=== PATIENT | male | born 1990 | race Caucasian/White ===

== ENCOUNTER 2017-05-01 14:22 | Emergency (ER) | payer BC, OTHER ==
[~2017-05-01] VITALS: Ht 205.7 cm; Wt 158.8 kg
[~2017-05-01 14:22] MED LIST: AMOX-358 PO; CEPH-507 PO; MELO-195 PO; SULF1TAB35 PO
[2017-05-01] MEDS ORDERED: NS IV 1000 ML 1,000 ML IV ONE (15:16)
[2017-05-01] MEDS ORDERED: ONDANSETRON 4 MG/2 ML (SDV) Z0FRAN IVP ONE (15:30)
--- NOTE | 2017-05-01 15:42 | ED GI ---
General Chief Complaint: Abdominal/GI Problems Stated Complaint: N/V/D,FEVER Nursing Triage Note: AMB TO ROOM REPORTS DIARRHEA X2 DAYS VOMITING YESTERDAY, REPORTS ATE PI[employer] WITH NO VOMITNG. C/O RIB PAIN WITH COUGHING Sepsis Screen: No Definite Risk Source of Information: Patient Exam Limitations: No Limitations History of Present Illness Date Seen by Provider: May 01, 2017 Time Seen by Provider: 15:42 Allergies and Home Medications Allergies Coded Allergies: No Known Drug Allergies (Unverified , 11/21/15) Home Medications Sulfamethoxazole/Trimethoprim 1 Each Tablet, 1 EACH PO TID Prescribed by: DONTRELL SHERIDAN on 02/02/16 1329 Past Fpgyydk-Mdhrnn-Rbqohw Hx Patient Social History Alcohol Use: Denies Use Recreational Drug Use: No Recent Foreign Travel: No Contact w/Someone Who Travel: No Recent Infectious Disease Expo: No Recent Hopitalizations: No Immunizations Up To Date Tetanus Booster (TDap): Less than 5yrs Seasonal Allergies Seasonal Allergies: No Surgeries History of Surgeries: Yes (chin, toe) Respiratory History of Respiratory Disorde: No Cardiovascular History of Cardiac Disorders: No Neurological History of Neurological Disord: No Reproductive System Hx Reproductive Disorders: No Gastrointestinal History of Gastrointestinal Di: No Musculoskeletal History of Musculoskeletal Dis: No Endocrine History of Endocrine Disorders: No Cancer History of Cancer: No Psychosocial History of Psychiatric Problem: No Integumentary History of Skin or Integumenta: No Blood Transfusions History of Blood Disorders: No Family Medical History Significant Family History: No Pertinent Family Hx Physical Exam Vital Signs VS - Last 72 Hours, by Label 05/01/17 15:11 Temp 98.7 Pulse 95 Resp 18 B/P (MAP) 149/99 (116) Pulse Ox 95 O2 Delivery Room Air Capillary Refill : Less Than 3 Seconds Progress/Results/Core Measures Results/Orders Lab Results Laboratory Tests Test 05/01/17 15:53 Range/Units Urine Color YELLOW Urine Clarity CLEAR Urine pH 6 5-9 Urine Specific [place] 1.015 L 1.016-1.022 Urine Protein 3+ H NEGATIVE Urine Glucose (UA) NEGATIVE NEGATIVE Urine Ketones NEGATIVE NEGATIVE Urine Nitrite NEGATIVE NEGATIVE Urine Bilirubin NEGATIVE NEGATIVE Urine Urobilinogen NORMAL NORMAL MG/DL Urine Leukocyte Esterase NEGATIVE NEGATIVE Urine RBC (Auto) 1+ H NEGATIVE Urine RBC RARE /HPF Urine WBC 0-2 /HPF Urine Crystals NONE /LPF Urine Bacteria NEGATIVE /HPF Urine Casts NONE /LPF Urine Mucus SMALL H /LPF Urine Culture Indicated NO My Orders Orders - KRISTIE YEN Ondansetron Injection (Zofran Injectio (05/01/17 15:30) Ns Iv 1000 Ml (Sodium Chloride 0.9%) (05/01/17 15:16) Ua Culture If Indicated (05/01/17 16:06) Vital Signs/I&O Vital Sign - Last 12Hours 05/01/17 15:11 Temp 98.7 Pulse 95 Resp 18 B/P (MAP) 149/99 (116) Pulse Ox 95 O2 Delivery Room Air Blood Pressure Mean: 116 Departure Impression Impression: Primary Impression: Viral respiratory infection Additional Impression: Nausea, vomiting, and diarrhea Disposition: 01 HOME, SELF-CARE Condition: Improved Departure-Patient Inst. Decision time for Depature: 16:36 Referrals: [facility] (PCP/Family) Primary Care Physician Patient Instructions: Acute Abdomen (Belly Pain), Adult (DC), Viral Gastroenteritis, Adult (DC), Viral Upper Respiratory Infection, Adult (DC) Add. Discharge Instructions: All discharge instructions reviewed with patient and/or family. Voiced understanding. Medications as instructed. Tylenol Extra Strength over-the- counter as directed for pain. Ibuprofen 800 mg by mouth every 8 hours as needed for pain. Price, low-fat diet until symptoms improve, then increase diet slowly. Qahk-ixt-fmsjcky decongestants/antihistamines/cough suppressants as directed for symptoms. Drink plenty of fluids. Follow-up with your primary care provider if no improvement in symptoms. Return to the emergency department for worsened symptoms or any other concerns. Scripts Ondansetron (Ondansetron Odt) 8 Mg Tab.rapdis 8 MG PO Q6H Y for NAUSEA/VOMITING-1ST LINE, #10 TAB 0 Refills Prov: KRISTIE YEN 05/01/17 Work/School Note: Work Release Form Date Seen in the Emergency Department: May 01, 2017 Return to Work: May 02, 2017 Restrictions: Return-No Vomiting(24hrs) KRISTIE YEN May 01, 2017 15:42
[2017-05-01 16:12] LABS: BILIRUBIN,URINE NEGATIVE (NEGATIVE); CLARITY,URINE CLEAR; COLOR,URINE YELLOW; GLUCOSE, URINE (UA) NEGATIVE (NEGATIVE); KETONES,URINE NEGATIVE (NEGATIVE); LEUKOCYTE ESTERASE ,URINE NEGATIVE (NEGATIVE); NITRITE,URINE NEGATIVE (NEGATIVE); PH,URINE 6 (5-9); PROTEIN,URINE 3+ (NEGATIVE); UROBILINOGEN,URINE NORMAL (NORMAL)
[2017-05-01 16:20] LABS: BACTERIA,URINE NEGATIVE /HPF; RBC,URINE RARE /HPF; WBC,URINE 0-2 /HPF
[2017-05-01] MEDS ORDERED: ONDA8TAB13 PO (16:37)
[2017-05-01 16:48] VITALS: BP 14/90
== END 2017-05-01 16:48 | disposition home or self-care (01) ==
LOC: EDUNIT# 14:22 → ER 14:24
DX: J06.9 Acute upper respiratory infection, unspecified (principal); R19.7 Diarrhea, unspecified; R11.2 Nausea with vomiting, unspecified; Z88.2 Allergy status to sulfonamides
CPT/HCPCS: 81000; 99282

== ENCOUNTER 2017-05-17 19:48 | Emergency (ER) | payer OTHER ==
[~2017-05-17] VITALS: Ht 208.3 cm; Wt 158.8 kg
[~2017-05-17 19:48] MED LIST changes: +ONDA8TAB13 PO
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
--- NOTE | 2017-05-17 20:02 | ED Upper Extremity ---
General Chief Complaint: Upper Extremity Stated Complaint: R HAND SWELLING, PAIN History of Present Illness Date Seen by Provider: May 17, 2017 Time Seen by Provider: 20:00 Initial Comments Patient is a 26-year-old male who presents to the emergency room with complaints of right hand pain and bruising after catching a softball barehanded just prior to arrival. Onset: just prior to arrival Pain/Injury Location: right hand Method of Injury: sports injury Patient reports that he is able to move the hand and all of his fingers appropriately and demonstrated this on examination. Allergies and Home Medications Allergies Coded Allergies: No Known Drug Allergies (Unverified , 11/21/15) Home Medications Ondansetron 8 Mg Tab.rapdis, 8 MG PO Q6H PRN for NAUSEA/VOMITING-1ST LINE Prescribed by: KRISTIE YEN on 05/01/17 1637 Sulfamethoxazole/Trimethoprim 1 Each Tablet, 1 EACH PO TID Prescribed by: DONTRELL SHERIDAN on 02/02/16 1329 Patient Home Medication List Home Medication List Reviewed: Yes Constitutional: no symptoms reported, see HPI EENTM: see HPI, no symptoms reported Respiratory: no symptoms reported, see HPI Cardiovascular: no symptoms reported, see HPI Gastrointestinal: no symptoms reported, see HPI Genitourinary: no symptoms reported, see HPI Musculoskeletal: see HPI, other (right hand pain) Skin: no symptoms reported, see HPI Psychiatric/Neurological: No Symptoms Reported, See HPI Past Acbczxj-Fpnmjs-Jgrqim Hx Patient Social History Recent Foreign Travel: No Contact w/Someone Who Travel: No Recent Hopitalizations: No Immunizations Up To Date Tetanus Booster (TDap): Less than 5yrs Seasonal Allergies Seasonal Allergies: No Surgeries History of Surgeries: Yes (chin, toe) Respiratory History of Respiratory Disorde: No Cardiovascular History of Cardiac Disorders: No Neurological History of Neurological Disord: No Reproductive System Hx Reproductive Disorders: No Gastrointestinal History of Gastrointestinal Di: No Musculoskeletal History of Musculoskeletal Dis: No Endocrine History of Endocrine Disorders: No Cancer History of Cancer: No Psychosocial History of Psychiatric Problem: No Integumentary History of Skin or Integumenta: No Blood Transfusions History of Blood Disorders: No Family Medical History Significant Family History: No Pertinent Family Hx Physical Exam Vital Signs Capillary Refill : General Appearance: WD/WN, no apparent distress Neck: non-tender, full range of motion Cardiovascular: normal peripheral pulses, regular rate, rhythm Respiratory: chest non-tender, lungs clear Gastrointestinal: normal bowel sounds, non tender Back: normal inspection Wrist: Yes normal inspection, Yes non-tender Hand: Right (hand), ecchymosis, soft tissue tenderness Neurologic/Tendon: normal sensation Neurologic/Psychiatric: alert, normal mood/affect, oriented x 3 Skin: normal color Lymphatic: no adenopathy Progress/Results/Core Measures Results/Orders My Orders Orders - FAUSTINA BEACH APRN Hand, Right, 3 Views (05/17/17 19:59) Departure Impression Impression: Primary Impression: Contusion of right hand Disposition: HOME, SELF-CARE Condition: Stable/Unchanged Departure-Patient Inst. Decision time for Depature: 20:06 Referrals: [facility] (PCP/Family) Primary Care Physician Patient Instructions: Contusion (DC) Add. Discharge Instructions: Follow-up with her doctor within 1 week if pain persist. You may use Tylenol and ibuprofen as needed for pain relief. Use ice at 20 minute intervals for additional pain relief and swelling. Return back to the emergency room as needed. All discharge instructions reviewed with patient and/or family. Voiced understanding. FAUSTINA BEACH APRN May 17, 2017 20:02
--- NOTE | 2017-05-17 20:40 | Diagnostic Imaging Report ---
INDICATION: Caught a softball barehanded with pain to the lateral aspect near the first metacarpal phalangeal joint. FINDINGS: Three views of the right hand demonstrate normal ossification. No fracture or subluxation is present. IMPRESSION: Negative right hand. Dictated by: Dictated on workstation # [id number]
[2017-05-17 20:54] VITALS: BP 0/0
== END 2017-05-17 20:54 | disposition home or self-care (01) ==
LOC: EDUNIT# 19:48 → ER 19:50
DX: S60.221A Contusion of right hand, initial encounter (principal); Z98.890 Other specified postprocedural states; W21.07XA Struck by softball, initial encounter
CPT/HCPCS: 73130

== ENCOUNTER 2017-05-26 18:51 | Emergency (ER) | payer OTHER ==
[~2017-05-26] VITALS: Ht 208.3 cm; Wt 158.8 kg
--- NOTE | 2017-05-26 19:41 | Diagnostic Imaging Report ---
INDICATION: Shortness of breath and cough. PA and lateral views of the chest were obtained. FINDINGS: The heart size, mediastinal configuration, and pulmonary vascularity are within normal limits. There is no pleural effusion, pneumothorax, or pneumonia. The osseous structures are unremarkable. IMPRESSION: No acute cardiopulmonary abnormality. Dictated by: Dictated on workstation # [id number]
--- NOTE | 2017-05-26 20:13 | ED Cough/URI ---
General Chief Complaint: Cough/Cold/Flu Symptoms Stated Complaint: SOB Nursing Triage Note: Patient reports being SOA x 4 days, worse this afternoon while fishing. patient reports being exposed recently to pneumonia Source: patient Exam Limitations: no limitations History of Present Illness Date Seen by Provider: May 26, 2017 Time Seen by Provider: 20:13 Allergies and Home Medications Allergies Coded Allergies: No Known Drug Allergies (Unverified , 11/21/15) Home Medications No Active Prescriptions or Reported Meds Past Ofhgcuh-Mwrnas-Wgziha Hx Patient Social History Alcohol Use: Denies Use Recreational Drug Use: No Smoking Status: Never a Smoker Recent Foreign Travel: No Contact w/Someone Who Travel: No Recent Infectious Disease Expo: No Recent Hopitalizations: No Physical Abuse: No Sexual Abuse: No Immunizations Up To Date Tetanus Booster (TDap): Less than 5yrs Seasonal Allergies Seasonal Allergies: No Surgeries History of Surgeries: No Respiratory History of Respiratory Disorde: No Cardiovascular History of Cardiac Disorders: No Neurological History of Neurological Disord: No Reproductive System Hx Reproductive Disorders: No Genitourinary History of Genitourinary Disor: No Gastrointestinal History of Gastrointestinal Di: No Musculoskeletal History of Musculoskeletal Dis: No Endocrine History of Endocrine Disorders: No HEENT History of HEENT Disorders: No Cancer History of Cancer: No Psychosocial History of Psychiatric Problem: No Suicide Risk Score: 0 Integumentary History of Skin or Integumenta: No Blood Transfusions History of Blood Disorders: No Family Medical History Significant Family History: No Pertinent Family Hx Physical Exam Vital Signs Vital Signs - First Documented 05/26/17 05/26/17 19:06 20:50 Temp 97.7 Pulse 114 Resp 18 B/P (MAP) 114/91 (99) Pulse Ox 99 O2 Delivery Room Air Capillary Refill : Less Than 3 Seconds Progress/Results/Core Measures Suspected Sepsis Recent Fever Within 48 Hours: No Infection Criteria Present: None New/Unexplained Altered Menta: No Sepsis Screen: No Definite Risk Sepsis Diagnosis: SIRS Temperature:97.7 Pulse: 114 Respiratory Rate: 18 Blood Pressure 114 /91 Mean: 99 Results/Orders My Orders Orders - KRISTIE YEN PA Chest Pa/Lat (2 View) (05/26/17 19:28) Albuterol/Ipra Inhalation Soln (Duoneb I (05/26/17 20:30) Svn Sm Volume Nebulizer Rt-Rfs (05/26/17 20:21) Prednisone Tablet (Deltasone Tablet) (05/26/17 20:30) Medications Given in ED Current Medications Medications Dose Ordered Sig/Narciso Route Start Time Stop Time Status Last Admin Dose Admin Albuterol/ Ipratropium 3 ml ONCE ONCE INH 05/26/17 20:30 05/26/17 20:31 DC 05/26/17 20:49 3 ML Prednisone 40 mg ONCE ONCE PO 05/26/17 20:30 05/26/17 20:31 DC 05/26/17 20:35 40 MG Vital Signs/I&O Vital Sign - Last 12Hours 05/26/17 05/26/17 19:06 20:50 Temp 97.7 Pulse 114 Resp 18 B/P (MAP) 114/91 (99) Pulse Ox 99 96 O2 Delivery Room Air Capillary Refill : Less Than 3 Seconds Blood Pressure Mean: 99 Departure Impression Impression: Primary Impression: Bronchitis Disposition: 01 HOME, SELF-CARE Condition: Improved Departure-Patient Inst. Decision time for Depature: 21:33 Referrals: E[facility] FRANCOIS (PCP/Family) Primary Care Physician Patient Instructions: Acute Bronchitis, Adult (DC) Add. Discharge Instructions: All discharge instructions reviewed with patient and/or family. Voiced understanding. Medications as instructed. Tylenol Extra Strength over-the- counter as directed for pain or fever. Ibuprofen 800 mg by mouth every 8 hours as needed for pain or fever. Push fluids. Cool humidifier. Deyz-qrm-wpdzbdk decongestants and antihistamines, and cough suppressants as needed for symptoms. Follow-up with your family practitioner for recheck as outpatient if needed. Return to the emergency department for worsened symptoms or any other concerns. Scripts Prednisone (Prednisone) 20 Mg Tab 40 MG PO DAILY, #8 TAB 0 Refills Prov: KRISTIE YEN 05/26/17 Albuterol Sulfate (Albuterol Sulfate) 2.5 Mg/3 Ml Vial.neb 2.5 MG IH Q6H Y for WHEEZING, #25 EA 0 Refills Prov: KRISTIE YEN 05/26/17 Minocycline HCl (Minocycline HCl) 100 Mg Capsule 100 MG PO BID, #14 CAP 0 Refills Prov: KRISTIE YEN 05/26/17 KRISTIE YEN May 26, 2017 20:13
[2017-05-26] MEDS ORDERED: predniSONE 20 MG TAB PO ONE (20:30)
[2017-05-26] MEDS ORDERED: RT-ALBUTEROL/IPRATROPIUM 3 ML (DUONEB) VIAL INH ONE (20:30)
[2017-05-26] MEDS ORDERED: PRD20T PO (21:34)
[2017-05-26] MEDS ORDERED: ALBU2.5V4 IH (21:34)
[2017-05-26] MEDS ORDERED: MINO100C2 PO (21:34)
[2017-05-26] MEDS ORDERED: RX-ALBUTEROL NEB 2.5 MG/3 ML PACK #5 IH STA (21:35)
[2017-05-26] MEDS ORDERED: RX-DOXYCYCLINE 100 MG (VIBRAMYCIN) TAB PPK#2 PO STA (21:35)
[2017-05-26 21:42] VITALS: BP 114/91
== END 2017-05-26 21:42 | disposition home or self-care (01) ==
LOC: EDUNIT# 18:51 → ER 18:52
DX: J40 Bronchitis, not specified as acute or chronic (principal)
CPT/HCPCS: 71046; 94640

== ENCOUNTER 2021-01-02 21:04 | Emergency (ER) | payer SELFPAY ==
[~2021-01-02] VITALS: Ht 208 cm; Wt 159.0 kg
[~2021-01-02 21:04] MED LIST changes: +ALBU2.5V4 IH; +MINO100C5 PO; +PRD20T PO; -SULF1TAB35 PO; +SULF1TAB38 PO
[2021-01-02] MEDS ORDERED: RX-AMOX/CLAV. (AUGMENTIN) 500MG TAB PPK#2 PO STA (21:43)
[2021-01-02] MEDS ORDERED: KETOROLAC 60 MG/2 ML VIAL IM ONE (21:45)
--- NOTE | 2021-01-02 21:48 | ED EENT ---
History of Present Illness General Chief Complaint: Dental Problems/Pain Stated Complaint: JAW PAIN Source: patient Exam Limitations: no limitations History of Present Illness Date Seen by Provider: Jan 02, 2021 Time Seen by Provider: 21:45 Initial Comments Right lower dental pain for 2 days no known injury no fever no chills no swelling Timing/Duration: abrupt Severity: moderate Location: dental Prearrival Treatment: no prearrival treatment Associated Symptoms: denies symptoms Allergies and Home Medications Allergies Coded Allergies: No Known Drug Allergies (Unverified , 11/21/15) Patient Home Medication List Home Medication List Reviewed: Yes Albuterol Sulfate (Albuterol Sulfate) 2.5 Mg/3 Ml Vial.neb, 2.5 MG IH Q6H PRN for WHEEZING Prescribed by: KRISTIE YEN on 05/26/172133 Minocycline HCl (Minocycline HCl) 100 Mg Capsule, 100 MG PO BID Prescribed by: KRISTIE YEN on 05/26/172133 Prednisone (Prednisone) 20 Mg Tab, 40 MG PO DAILY Prescribed by: KRISTIE YEN on 05/26/172133 Review of Systems Review of Systems Constitutional: see HPI Eyes: No Symptoms Reported Ears: No Symptoms Reported Nose: no symptoms reported Mouth: see HPI, pain Throat: no symptoms reported Respiratory: see HPI Cardiovascular: no symptoms reported Musculoskeletal: no symptoms reported Skin: no symptoms reported Past Vlpdvkt-Cmwmya-Onqrvm Hx Immunizations Up To Date Tetanus Booster (TDap): Less than 5yrs Seasonal Allergies Seasonal Allergies: No Past Medical History Surgeries: No Respiratory: No Cardiac: No Neurological: No Reproductive Disorders: No Genitourinary: No Gastrointestinal: No Musculoskeletal: No Endocrine: No HEENT: No Cancer: No Psychosocial: No Integumentary: No Blood Disorders: No Family Medical History No Pertinent Family Hx Physical Exam Height, Weight, BMI Height: 6'10.00" Weight: 350lbs. oz. 158.542117sz; 36.59 BMI Method:Stated General Appearance: WD/WN, no apparent distress Eyes: bilateral eye normal inspection, bilateral eye PERRL, bilateral eye EOMI Ears: bilateral ear auricle normal, bilateral ear canal normal, bilateral ear TM normal Mouth/Throat: normal mouth inspection, other (His teeth are really in pretty good condition, one of his lower molars is a little tender to touch but there is no fluctuance or swelling. No lymphadenopathy) Respiratory: no respiratory distress, no accessory muscle use Neurologic/Psychiatric: alert, normal mood/affect, oriented x 3 Skin: normal color, warm/dry Progress/Results/Core Measures Results/Orders My Orders Orders - FAUSTINA BEACH APRN Ketorolac Injection (Toradol Injection) (01/02/21 21:45) Rx-Amoxicillin/Clav Tab (Rx-Augmentin Ta (01/02/21 21:43) Rx-Hydrocodone/Apap 5-325 Mg (Rx-Vicodin (01/02/21 21:45) Departure Impression Primary Impression: Pain, dental Disposition: HOME, SELF-CARE Condition: Stable Departure-Patient Inst. Decision time for Depature: 21:49 Referrals: [facility] (PCP) Primary Care Physician ELLA FRANCOIS (Family) Primary Care Physician Patient Instructions: Dental Pain Add. Discharge Instructions: Call dentist of your choosing to make an appointment to be seen for follow-up. Medication as directed. Return to ER for any worsening. All discharge instructions reviewed with patient and/or family. Voiced understanding. Scripts Naproxen (Naprosyn) 500 Mg Tablet 500 MG PO BID, #30 TAB 0 Refills Prov: FAUSTINA BEACH APRN 01/02/21 Amoxicillin (Amoxicillin) 500 Mg Capsule 500 MG PO TID, #21 CAP 0 Refills Prov: FAUSTINA BEACH APRN 01/02/21 FAUSTINA BEACH APRN Jan 02, 2021 21:48
[2021-01-02] MEDS ORDERED: AMOX500C2 PO (21:50)
[2021-01-02] MEDS ORDERED: NAPR-1071 PO (21:50)
[2021-01-02 22:00] VITALS: BP 158/96
== END 2021-01-02 22:08 | disposition home or self-care (01) ==
LOC: EDUNIT# 21:04 → ER 21:07
DX: K08.89 Other specified disorders of teeth and supporting structures (principal); Z79.52 Long term (current) use of systemic steroids
CPT/HCPCS: 99284